=== PATIENT | female | born 1945 | race Caucasian/White ===

== ENCOUNTER → 2018-05-17 | Outpatient (REF) | payer MEDICARE ==
[2018-05-17 19:29] LABS: GAMMA GLUTAMYLTRANSPEPTIDASE 75 U/L (5-55)
[2018-05-17 19:36] LABS: AMMONIA 22 uMOL/L (<32)
== END ==
LOC: M LAB REF 17:34
DX: K70.9 Alcoholic liver disease, unspecified (principal)
CPT/HCPCS: 82140

== ENCOUNTER 2018-12-02 12:56 | Emergency (ER) | payer MEDICARE ==
[~2018-12-02] VITALS: Ht 162.6 cm; Wt 55.9 kg
[~2018-12-02 12:56] MED LIST: ASPI81CH36 PO; PERC5TAB12 PO; PERC5TAB8 OR; PRED10TA2 PO; SIMV40TA2 PO
[2018-12-02] MEDS ORDERED: NS 1,000 ML IV ONE (13:15)
--- NOTE | 2018-12-02 13:34 | REP ---
Clinical: Trauma/fall. Comparison: 01/02/2008 . Findings: Age-related atrophy with periventricular leukomalacia and microvascular ischemic changes are appreciated. 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 The ventricles and sulci are symmetric. Girard-white differentiation is maintained. There is no evidence for acute intracranial hemorrhage, mass/mass effect, pathology or infarction. No extra-axial fluid collection. Calvarium is intact. Paranasal sinuses and mastoid air cells are clear. Small posterior scalp contusion noted. Impression: Age related atrophy and microvascular ischemic changes. Areas of old infarction. No acute intracranial hemorrhage, infarction, or mass/mass effect. Electronically Signed by Petros Donahue MD 12/02/2018 01:25 P
--- NOTE | 2018-12-02 13:37 | REP ---
Clinical: Trauma. Fall. Technique: Axial noncontrast images from the skull base to the thoracic inlet with coronal and sagittal re-formations. Comparison: 02/18/2015. Findings: Moderate to advanced multilevel degenerative disc osteophyte complexes are appreciated primarily involving the C1-C2 complex as well as the C6-7 and C5-6 levels. Chronic anterolisthesis at the C4-5 noted. No acute fracture / compression injury or subluxation identified. Posterior elements and spinous processes are intact. Spinal canal appears patent. Paravertebral soft tissues are within normal limits. Impression: Moderate/advanced multilevel degenerative spondylosis. No acute fracture / compression injury or subluxation. Electronically Signed by Petros Donahue MD 12/02/2018 01:29 P
--- NOTE | 2018-12-02 13:38 | REP ---
Clinical: Chest pain. Comparison: 02/15/2017. Findings: Mediastinum and cardiac silhouette are normal. Lung cruz demonstrate chronic-appearing changes. No obvious acute consolidation, effusion, or pneumothorax. Skeletal structures are intact. Impression: No acute cardiopulmonary process appreciated. Electronically Signed by Petros Donahue MD 12/02/2018 01:30 P
[2018-12-02] MEDS ORDERED: DIAZ5TAB (14:40)
[2018-12-02] MEDS ORDERED: PARO20TA3 (14:40)
[2018-12-02] MEDS ORDERED: ADACEL/BOOSTRIX VACCINE (DIPHTH/PERTUSS/ACELL/TETANUS)0.5ML SYR (90715) IM ONE (14:45)
[2018-12-02 15:25] LABS: BASO % 0.7 % (0.0-1.0); EOS # 0.1 10^3/uL (0.0-0.50); EOS % 1.1 % (0.0-3.0); HEMATOCRIT 34.9 % (36.0-47.0); HEMOGLOBIN 11.8 g/dl (12.0-15.5); LYMPH # 1.8 10^3/uL (1.5-4.5); LYMPH % 33.1 % (24.0-44.0); MEAN CORPUSCULAR HGB CONC 33.8 g/dl (32.0-36.5); MEAN CORPUSCULAR VOLUME 103.6 fl (80.0-96.0); MONO # 0.4 10^3/uL (0.0-0.8); MONO % 6.3 % (0.0-5.0); NEUTROPHILS # 3.2 10^3/uL (1.8-7.7); NEUTROPHILS % 58.3 % (36.0-66.0); PLATELET COUNT, AUTOMATED 283 10^3/uL (150-450); RED BLOOD COUNT 3.37 10^6/uL (4.00-5.40); WHITE BLOOD COUNT 5.5 10^3/uL (4.0-10.0)
[2018-12-02 15:39] LABS: INR 0.92; PROTHROMBIN TIME 12.4 SECONDS (12.1-14.4)
[2018-12-02 15:40] LABS: PARTIAL THROMBOPLASTIN TIME 28.9 SECONDS (25.4-37.6)
[2018-12-02 15:56] LABS: ALBUMIN 2.6 GM/DL (3.2-5.2); ALT/SGPT 59 U/L (12-78); BILIRUBIN,DIRECT 0.2 MG/DL (0.0-0.2); BILIRUBIN,TOTAL 0.3 MG/DL (0.2-1.0); BLOOD UREA NITROGEN 9 MG/DL (7-18); CALCIUM LEVEL 8.1 MG/DL (8.8-10.2); CARBON DIOXIDE LEVEL 28 MEQ/L (21-32); CHLORIDE LEVEL 109 MEQ/L (98-107); CK-MB VALUE MASS < 1.0 NG/ML (<3.6); CPK CREATINE PHOSPHOKINASE 40 U/L (26-192); CREATININE FOR GFR 0.38 MG/DL (0.55-1.30); ETHYL ALCOHOL (ETHANOL) 0.142 % (0.000-0.010); GLOMERULAR FILTRATION RATE > 60.0 (>39); GLUCOSE, FASTING 72 MG/DL (70-100); POTASSIUM SERUM 3.9 MEQ/L (3.5-5.1); SODIUM LEVEL 147 MEQ/L (136-145); TOTAL PROTEIN 5.5 GM/DL (6.4-8.2); TROPONIN I < 0.02 NG/ML (< 0.10)
[2018-12-02 16:21] VITALS: BP 111/80
--- NOTE | 2018-12-02 19:15 | ECGEPIP ---
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
== END 2018-12-02 16:43 | disposition home or self-care (01) ==
LOC: M ED 12:56 → EDBD 12:56 → M ED 16:43
DX: F10.929 Alcohol use, unspecified with intoxication, unspecified (principal); S00.03XA Contusion of scalp, initial encounter; W18.39XA Other fall on same level, initial encounter; Y92.009 Unspecified place in unspecified non-institutional (private) residence as the place of occurrence of the external cause; J44.9 Chronic obstructive pulmonary disease, unspecified; F17.200 Nicotine dependence, unspecified, uncomplicated; Z86.73 Personal history of transient ischemic attack (TIA), and cerebral infarction without residual deficits; Z88.2 Allergy status to sulfonamides; Z79.899 Other long term (current) drug therapy
CPT/HCPCS: 36415; 70450; 71045; 72125; 80048; 80076; 82550; 82553; 84443; 84484; 85025; 85610; 85730; 86850; 86900; 86901; 90471; 90715; 93005; 93041; 94760; 96360; 99285; G0480

== ENCOUNTER 2019-01-18 12:48 | Emergency (ER) | payer MEDICARE ==
[~2019-01-18] VITALS: Ht 162.6 cm; Wt 54.5 kg
[~2019-01-18 12:48] MED LIST changes: +DIAZ5TAB; +PARO20TA3
[2019-01-18] MEDS ORDERED: NS 1,000 ML IV SCH (13:03)
[2019-01-18 13:34] LABS: BASO # 0.1 10^3/uL (0.0-0.2); BASO % 1.1 % (0.0-1.0); EOS % 0.2 % (0.0-3.0); HEMOGLOBIN 12.7 g/dl (12.0-15.5); LYMPH # 1.5 10^3/uL (1.5-4.5); LYMPH % 33.8 % (24.0-44.0); MEAN CORPUSCULAR HEMOGLOBIN 36.3 pg (27.0-33.0); MEAN CORPUSCULAR HGB CONC 35.3 g/dl (32.0-36.5); MEAN CORPUSCULAR VOLUME 102.9 fl (80.0-96.0); MONO # 0.4 10^3/uL (0.0-0.8); MONO % 8.3 % (0.0-5.0); NEUTROPHILS # 2.5 10^3/uL (1.8-7.7); NEUTROPHILS % 56.4 % (36.0-66.0); PLATELET COUNT, AUTOMATED 179 10^3/uL (150-450); WHITE BLOOD COUNT 4.4 10^3/uL (4.0-10.0)
[2019-01-18] MEDS ORDERED: SYMB16INH INH (13:41)
[2019-01-18] MEDS ORDERED: CLON0.5T8 PO (13:41)
[2019-01-18 14:06] LABS: ALBUMIN 2.7 GM/DL (3.2-5.2); ALT/SGPT 139 U/L (12-78); BILIRUBIN,DIRECT 0.6 MG/DL (0.0-0.2); BILIRUBIN,TOTAL 1.1 MG/DL (0.2-1.0); CK-MB VALUE MASS < 1.0 NG/ML (<3.6); CPK CREATINE PHOSPHOKINASE 40 U/L (26-192); LIPASE 196 U/L (73-393); TROPONIN I < 0.02 NG/ML (< 0.10)
[2019-01-18 15:00] LABS: ETHYL ALCOHOL (ETHANOL) 0.265 % (0.000-0.010)
[2019-01-18 17:05] VITALS: BP 99/68
--- NOTE | 2019-01-19 17:40 | ECGEPIP ---
Stationary ECG Study [facility] - ED Test Date: 2019-01-18 Pat Name: DAVID SY Department: Room: - Gender: F Ar Manager: iliana : 1945 Requested By: Sadaf Gar Order Number: [id number] Reading MD: Sadaf Gar Measurements Intervals [place] Rate: 76 P: 56 [place]: 177 QRS: 36 QRSD: 77 T: 71 QT: 405 QTc: 457 Interpretive Statements SINUS RHYTHM WITH SINUS ARRHYTHMIA MODERATE ST DEPRESSION DECREASED RATE 12/02/18 Electronically Signed On 01-19-2019 17:40:12 EDT by Sadaf Gar
== END 2019-01-18 18:04 | disposition home or self-care (01) ==
LOC: M ED 12:48
DX: F10.129 Alcohol abuse with intoxication, unspecified (principal)
CPT/HCPCS: 80047; 80076; 82550; 82553; 83605; 83690; 84484; 85025; 93005; 93041; 99285; G0480

== ENCOUNTER 2019-01-25 14:33 | Emergency (ER) | payer MEDICARE ==
[~2019-01-25] VITALS: Ht 162.6 cm; Wt 52.7 kg
[~2019-01-25 14:33] MED LIST changes: +CLON0.5T8 PO; +SYMB16INH INH
[2019-01-25 15:26] LABS: BASO % 0.3 % (0.0-1.0); HEMATOCRIT 36.4 % (36.0-47.0); HEMOGLOBIN 12.9 g/dl (12.0-15.5); LYMPH # 0.9 10^3/uL (1.5-4.5); LYMPH % 16.1 % (24.0-44.0); MEAN CORPUSCULAR HEMOGLOBIN 35.1 pg (27.0-33.0); MEAN CORPUSCULAR HGB CONC 35.4 g/dl (32.0-36.5); MEAN CORPUSCULAR VOLUME 99.2 fl (80.0-96.0); MONO # 0.6 10^3/uL (0.0-0.8); MONO % 10.3 % (0.0-5.0); NEUTROPHILS # 4.3 10^3/uL (1.8-7.7); PLATELET COUNT, AUTOMATED 157 10^3/uL (150-450); RED BLOOD COUNT 3.67 10^6/uL (4.00-5.40); WHITE BLOOD COUNT 5.8 10^3/uL (4.0-10.0)
[2019-01-25] MEDS ORDERED: NS 1,000 ML IV ONE ×2 (15:45→16:30)
[2019-01-25 15:57] LABS: ACETAMINOPHEN LEVEL < 2.0 UG/ML (10.0-30.0); ALBUMIN 2.9 GM/DL (3.2-5.2); ALT/SGPT 99 U/L (12-78); BILIRUBIN,DIRECT 0.7 MG/DL (0.0-0.2); BILIRUBIN,TOTAL 1.4 MG/DL (0.2-1.0); BLOOD UREA NITROGEN 10 MG/DL (7-18); CALCIUM LEVEL 8.2 MG/DL (8.8-10.2); CARBON DIOXIDE LEVEL 30 MEQ/L (21-32); CHLORIDE LEVEL 97 MEQ/L (98-107); CPK CREATINE PHOSPHOKINASE 59 U/L (26-192); CREATININE FOR GFR 0.59 MG/DL (0.55-1.30); ETHYL ALCOHOL (ETHANOL) < 0.003 % (0.000-0.010); GLOMERULAR FILTRATION RATE > 60.0 (>39); GLUCOSE, FASTING 108 MG/DL (70-100); MAGNESIUM LEVEL 1.3 MG/DL (1.8-2.4); PHOSPHORUS LEVEL 2.9 MG/DL (2.5-4.9); POTASSIUM SERUM 3.1 MEQ/L (3.5-5.1); SALICYLATE LEVEL < 1.7 MG/DL (5.0-30.0); SODIUM LEVEL 138 MEQ/L (136-145); TOTAL PROTEIN 6.3 GM/DL (6.4-8.2)
[2019-01-25] MEDS ORDERED: MAG SULF 1GM/100ML (MAG RUN) 1 GM in APPROPRIATE DILUENT 1 EA IV ONE ×2 (16:30→18:00)
[2019-01-25] MEDS ORDERED: KCL 10MEQ/100ML SWI (KRUN) 10 MEQ in APPROPRIATE DILUENT 1 EA IV ONE (16:30)
[2019-01-25] MEDS ORDERED: ESSE250T PO (17:54)
[2019-01-25] MEDS ORDERED: K-TA10TA2 PO (17:55)
--- NOTE | 2019-01-25 18:03 | REP ---
Clinical: Abdominal pain with elevated liver function tests. Technique: Girard scale ultrasound using curved array transducer. Findings: The liver is enlarged and demonstrates increased echogenicity with poor through transmission suggesting fatty infiltration. The pancreas is incompletely evaluated due to interposed bowel gas but visualized portions appear normal. The gallbladder demonstrates small amount of layering sludge without wall thickening or pericholecystic fluid. The common bile duct measures 9.4 mm diameter without obvious obstruction. The right kidney is normal in reniform shape with increased central sinus fat measuring 11.3 x 5.4 x 5.1 cm without hydronephrosis. No ascites. Impression: 1. Hepatomegaly and hepatic steatosis. 2. Small amount of gallbladder sludge without sonographic Meyers's sign. Electronically Signed by Petros Donahue MD 01/25/2019 05:54 P
[2019-01-25 19:45] VITALS: BP 119/56
--- NOTE | 2019-01-25 21:01 | ECGEPIP ---
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
== END 2019-01-25 20:28 | disposition home or self-care (01) ==
LOC: M ED 14:33
DX: E83.42 Hypomagnesemia (principal); E87.6 Hypokalemia; F10.10 Alcohol abuse, uncomplicated; R16.0 Hepatomegaly, not elsewhere classified; K76.0 Fatty (change of) liver, not elsewhere classified; K83.9 Disease of biliary tract, unspecified; J44.9 Chronic obstructive pulmonary disease, unspecified; F32.9 Major depressive disorder, single episode, unspecified; Z72.0 Tobacco use; Z79.899 Other long term (current) drug therapy; Z88.2 Allergy status to sulfonamides
CPT/HCPCS: 76705; 80048; 80076; 82550; 83735; 84100; 84443; 85025; 93005; 93041; 94760; 96365; 96366; 96368; 99285; G0480; J3475

== ENCOUNTER → 2020-03-02 | Outpatient (REF) | payer MEDICARE ==
[~2020-03-02] MED LIST changes: +ASPI81CH32 PO; -ASPI81CH36 PO; +CLON0.5T2 PO; -CLON0.5T8 PO; +ESSE250T PO; +K-TA10TA2 PO; -SIMV40TA2 PO; +SIMV40TA20 PO
[2020-03-03 08:27] LABS: CA19-9 TUMOR MARKER,CARBOHYDRA 28.4 U/ML (<35.0)
== END ==
LOC: M LAB REF 16:05
PROVIDERS: ATTEND Family Medicine
DX: K86.9 Disease of pancreas, unspecified (principal); G45.9 Transient cerebral ischemic attack, unspecified; K83.1 Obstruction of bile duct; D37.8 Neoplasm of uncertain behavior of other specified digestive organs